=== PATIENT | male | born 1965 | race Caucasian/White ===

== ENCOUNTER 2020-04-22 13:44 | Inpatient (IN) | payer OTHER ==
[2020-04-22 15:03] VITALS: BMI 22.0
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
[2020-04-22] MEDS ORDERED: NICOTINE POLACRILEX 2 MG GUM BUC PRN (16:10)
[2020-04-22] MEDS ORDERED: IBUPROFEN 400 MG TABLET (FP) PO PRN (16:10)
[2020-04-22] MEDS ORDERED: MAGNESIUM CITRATE 300 ML BOTTLE PO PRN (16:10)
[2020-04-22] MEDS ORDERED: METHOCARBAMOL 500 MG TABLET PO PRN (16:10)
[2020-04-22] MEDS ORDERED: BISMUTH SUBSALICYLATE 524 MG/30 ML UD PO PRN (16:10)
[2020-04-22] MEDS ORDERED: chlordiazePOXIDE HCL 25 MG CAPSULE PO PRN (16:10)
[2020-04-22] MEDS ORDERED: ACETAMINOPHEN 325 MG TABLET (FP) PO PRN ×2 (16:10)
[2020-04-22] MEDS ORDERED: MAGNESIUM HYDROX 2400MG/30ML ORAL SUSPENSION 30 ML CUP PO PRN (16:10)
[2020-04-22] MEDS ORDERED: MAG HYDROX/AL HYDROX/SIMETH 30 ML UNIT-DOSE CUP PO PRN (16:10)
[2020-04-22] MEDS ORDERED: MENTHOL/PHENOL 1 EACH UD MM PRN (16:10)
[2020-04-22] MEDS ORDERED: ONDANSETRON *ODT* 4 MG TABLET SL PRN (16:10)
[2020-04-22] MEDS: NICOTINE 14 MG/24 HOURS TOPICAL PATCH TD SCH (17:39)
[2020-04-22] MEDS: chlordiazePOXIDE HCL 25 MG CAPSULE PO SCH ×2 (17:40→22:22)
[2020-04-22] MEDS: hydrOXYzine PAMOATE 25 MG CAPSULE (FP) PO SCH ×2 (17:45→22:22)
[2020-04-22] MEDS: THIAMINE HCL 100 MG TABLET (FP) PO SCH (22:22)
[2020-04-22] MEDS: MELATONIN 5 MG TABLETS PO SCH (22:22)
[2020-04-23] MEDS: hydrOXYzine PAMOATE 25 MG CAPSULE (FP) PO SCH ×5 (06:17→22:14)
[2020-04-23] MEDS: chlordiazePOXIDE HCL 25 MG CAPSULE PO SCH ×4 (06:17→22:14)
[2020-04-23] MEDS: PRENATAL VITAMINS W/ FOLIC ACID TABLET (FP) PO SCH (10:06)
[2020-04-23] MEDS: NICOTINE 14 MG/24 HOURS TOPICAL PATCH TD SCH (10:07)
[2020-04-23 10:36] LABS: HEMATOCRIT 41.7 % (35.4-49); HEMOGLOBIN 14.1 GM/dL (11.7-16.9); MCH 33.2 pg (25.7-33.7); MEAN CELL VOLUME 97.7 fl (80-96); MEAN PLT VOLUME 8.7 fl (7.5-11.1); PLATELET COUNT 116 K/MM3 (134-434); RBC 4.26 M/mm3 (4.00-5.60); RDW 13.2 % (11.9-15.9); WHITE BLOOD COUNT 5.6 K/mm3 (4.0-10.0)
[2020-04-23 10:52] LABS: ALBUMIN 3.9 g/dl (3.4-5.0); BILIRUBIN,TOTAL 1.3 mg/dL (0.2-1); BLOOD UREA NITROGEN 10.7 mg/dL (7-18); CALCIUM 9.3 mg/dL (8.5-10.1); CREATININE 0.8 mg/dL (0.55-1.3); POTASSIUM 3.6 mmol/L (3.5-5.1); TOT PROT 7.5 g/dl (6.4-8.2)
[2020-04-23] MEDS ORDERED: PNEUMOCOCCAL 23 VACCINE 0.5 ML VIAL IM ONE (12:00)
[2020-04-23] MEDS ORDERED: PNEUMOC 13-VAL CONJ-DIP CRM/PF 0.5 ML DISP.SYRIN IM ONE (12:00)
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
--- NOTE | 2020-04-23 12:44 | PN ---
S CIWA - CIWA Score Nausea/Vomitin-Mild Nausea/No Vomiting Muscle Tremors: 3 Anxiety: 2 Agitation: 1-Slight > Activity Paroxysmal Sweats: 1-Minimal Palms Moist Orientation: 0-Oriented Tacttile Disturbances: 0-None Auditory Disturbances: 0-None Visual Disturbances: 2-Mild Sensitivity Headache: 0-None Present CIWA-Ar Total Score: 10 BHS Progress Note (SOAP) Subjective: 54 years old male was admitted on 04/22/20 for alcohol withdrawal sx management treating with librium detox regiment feels tired ate 30% of breakfast and 40% lunch bmi 22 ensure 120 ml po tid with meals Objective: 04/23/20 12:52 Vital Signs - 24 hr 04/22/20 04/22/20 04/22/20 14:57 17:28 20:33 Temperature 97.7 F 97.3 F L 97.3 F L Pulse Rate 84 81 84 Respiratory 19 18 18 Rate Blood Pressure 141/88 161/86 139/91 O2 Sat by Pulse 100 Oximetry (%) 04/23/20 04/23/20 06:43 08:31 Temperature 97.1 F L 98.4 F Pulse Rate 104 H 82 Respiratory 16 18 Rate Blood Pressure 119/83 118/80 O2 Sat by Pulse 97 Oximetry (%) Laboratory Tests 04/23/20 04/23/20 04/23/20 08:00 08:00 08:00 WBC 5.6 RBC 4.26 Hgb 14.1 Hct 41.7 MCV 97.7 H MCH 33.2 MCHC 34.0 RDW 13.2 Plt Count 116 L MPV 8.7 Sodium 138 Potassium 3.6 Chloride 102 Carbon Dioxide 27 Anion Gap 9 BUN 10.7 Creatinine 0.8 Est GFR (CKD-EPI)AfAm 118.20 Est GFR (CKD-EPI)NonAf 101.99 Random Glucose 121 H Calcium 9.3 Total Bilirubin 1.3 H AST 73 H ALT 86 H Alkaline Phosphatase 72 Total Protein 7.5 Albumin 3.9 Syphilis Serology Non-reactive 04/23/20 12:56 glucose elevation fasting glucose pending Assessment: 04/23/20 12:56 alcohol withdrawal Plan: librium regiment
--- NOTE | 2020-04-23 16:58 | EKG ---
Test Reason : Blood Pressure : / mmHG Vent. Rate : 073 BPM Atrial Rate : 073 BPM P-R Int : 162 ms QRS Dur : 084 ms QT Int : 378 ms P-R-T Axes : 067 042 051 degrees QTc Int : 416 ms NORMAL SINUS RHYTHM POSSIBLE LEFT ATRIAL ENLARGEMENT BORDERLINE ECG NO PREVIOUS ECGS AVAILABLE Confirmed by MILO CAMARGO, GOYO ([id number]) on 04/23/2020 4:58:09 PM Referred By: Confirmed By:GOYO PEDRAZA MD
[2020-04-23] MEDS: THIAMINE HCL 100 MG TABLET (FP) PO SCH (22:14)
[2020-04-23] MEDS: MELATONIN 5 MG TABLETS PO SCH (22:14)
[2020-04-23] MEDS: traZODone HCL 100 MG TABLET (FP) PO SCH (22:14)
[2020-04-24] MEDS: hydrOXYzine PAMOATE 25 MG CAPSULE (FP) PO SCH ×5 (05:57→22:19)
[2020-04-24] MEDS: chlordiazePOXIDE HCL 25 MG CAPSULE PO SCH ×4 (05:57→22:19)
[2020-04-24] MEDS: PRENATAL VITAMINS W/ FOLIC ACID TABLET (FP) PO SCH (10:54)
[2020-04-24] MEDS: NICOTINE 14 MG/24 HOURS TOPICAL PATCH TD SCH (10:55)
--- NOTE | 2020-04-24 11:06 | PN ---
[facility] CIWA - CIWA Score Nausea/Vomitin-No Nausea/No Vomiting Muscle Tremors: 2 Anxiety: 3 Agitation: 0-Normal Activity Paroxysmal Sweats: 2 Orientation: 0-Oriented Tacttile Disturbances: 0-None Auditory Disturbances: 0-None Visual Disturbances: 0-None Headache: 1-Very Mild CIWA-Ar Total Score: 8 BHS Progress Note (SOAP) Subjective: c/o anxiety, headache, sweats, and shakes. Objective: 04/24/20 11:05 Vital Signs 04/24/20 04/24/20 06:58 08:36 Temperature 97.1 F L 97.1 F L Pulse Rate 91 H 92 H Respiratory 18 18 Rate Blood Pressure 98/61 95/63 O2 Sat by Pulse 97 Oximetry (%) Laboratory Last Values WBC 5.6 K/mm3 (4.0-10.0) 04/23/20 08:00 RBC 4.26 M/mm3 (4.00-5.60) 04/23/20 08:00 Hgb 14.1 GM/dL (11.7-16.9) 04/23/20 08:00 Hct 41.7 % (35.4-49) 04/23/20 08:00 MCV 97.7 fl (80-96) H 04/23/20 08:00 MCH 33.2 pg (25.7-33.7) 04/23/20 08:00 MCHC 34.0 g/dl (32.0-35.9) 04/23/20 08:00 RDW 13.2 % (11.9-15.9) 04/23/20 08:00 Plt Count 116 K/MM3 (134-434) L 04/23/20 08:00 MPV 8.7 fl (7.5-11.1) 04/23/20 08:00 Sodium 138 mmol/L (136-145) 04/23/20 08:00 Potassium 3.6 mmol/L (3.5-5.1) 04/23/20 08:00 Chloride 102 mmol/L (98-107) 04/23/20 08:00 Carbon Dioxide 27 mmol/L (21-32) 04/23/20 08:00 Anion Gap 9 MMOL/L (8-16) 04/23/20 08:00 BUN 10.7 mg/dL (7-18) 04/23/20 08:00 Creatinine 0.8 mg/dL (0.55-1.3) 04/23/20 08:00 Est GFR (CKD-EPI)AfAm 118.20 04/23/20 08:00 Est GFR (CKD-EPI)NonAf 101.99 04/23/20 08:00 Random Glucose 121 mg/dL (74-106) H 04/23/20 08:00 Calcium 9.3 mg/dL (8.5-10.1) 04/23/20 08:00 Total Bilirubin 1.3 mg/dL (0.2-1) H 04/23/20 08:00 AST 73 U/L (15-37) H 04/23/20 08:00 ALT 86 U/L (13-61) H 04/23/20 08:00 Alkaline Phosphatase 72 U/L (45-117) 04/23/20 08:00 Total Protein 7.5 g/dl (6.4-8.2) 04/23/20 08:00 Albumin 3.9 g/dl (3.4-5.0) 04/23/20 08:00 Syphilis Serology Non-reactive (NONREACTIVE) 04/23/20 08:00 Labs noted. Assessment: 04/24/20 11:05 AOX3, in no acute respiratory distress. Full ROM, ambulating in the unit. Withdrawal symptoms. Plan: continue detox.
[2020-04-24] MEDS: THIAMINE HCL 100 MG TABLET (FP) PO SCH (22:19)
[2020-04-24] MEDS: MELATONIN 5 MG TABLETS PO SCH (22:19)
[2020-04-24] MEDS: traZODone HCL 100 MG TABLET (FP) PO SCH (22:19)
[2020-04-25] MEDS ORDERED: chlordiazePOXIDE HCL 10 MG CAPSULE PO PRN
[2020-04-25] MEDS: hydrOXYzine PAMOATE 25 MG CAPSULE (FP) PO SCH ×5 (05:44→22:28)
[2020-04-25] MEDS: chlordiazePOXIDE HCL 10 MG CAPSULE PO SCH ×4 (05:44→22:28)
[2020-04-25] MEDS: PRENATAL VITAMINS W/ FOLIC ACID TABLET (FP) PO SCH (10:10)
[2020-04-25] MEDS: NICOTINE 14 MG/24 HOURS TOPICAL PATCH TD SCH (10:12)
--- NOTE | 2020-04-25 12:41 | PN ---
S CIWA - CIWA Score Nausea/Vomitin-No Nausea/No Vomiting Muscle Tremors: None Anxiety: 2 Agitation: 0-Normal Activity Paroxysmal Sweats: 2 Orientation: 0-Oriented Tacttile Disturbances: 0-None Auditory Disturbances: 0-None Visual Disturbances: 0-None Headache: 2-Mild CIWA-Ar Total Score: 6 BHS Progress Note (SOAP) Subjective: c/o headache, anxiety, and headache. Objective: 04/25/20 12:40 Vital Signs 04/25/20 04/25/20 06:45 08:34 Temperature 98.1 F 97.3 F L Pulse Rate 61 88 Respiratory 18 18 Rate Blood Pressure 98/58 L 98/62 O2 Sat by Pulse 99 Oximetry (%) Laboratory Last Values WBC 5.6 K/mm3 (4.0-10.0) 04/23/20 08:00 RBC 4.26 M/mm3 (4.00-5.60) 04/23/20 08:00 Hgb 14.1 GM/dL (11.7-16.9) 04/23/20 08:00 Hct 41.7 % (35.4-49) 04/23/20 08:00 MCV 97.7 fl (80-96) H 04/23/20 08:00 MCH 33.2 pg (25.7-33.7) 04/23/20 08:00 MCHC 34.0 g/dl (32.0-35.9) 04/23/20 08:00 RDW 13.2 % (11.9-15.9) 04/23/20 08:00 Plt Count 116 K/MM3 (134-434) L 04/23/20 08:00 MPV 8.7 fl (7.5-11.1) 04/23/20 08:00 Sodium 138 mmol/L (136-145) 04/23/20 08:00 Potassium 3.6 mmol/L (3.5-5.1) 04/23/20 08:00 Chloride 102 mmol/L (98-107) 04/23/20 08:00 Carbon Dioxide 27 mmol/L (21-32) 04/23/20 08:00 Anion Gap 9 MMOL/L (8-16) 04/23/20 08:00 BUN 10.7 mg/dL (7-18) 04/23/20 08:00 Creatinine 0.8 mg/dL (0.55-1.3) 04/23/20 08:00 Est GFR (CKD-EPI)AfAm 118.20 04/23/20 08:00 Est GFR (CKD-EPI)NonAf 101.99 04/23/20 08:00 Random Glucose 121 mg/dL (74-106) H 04/23/20 08:00 Calcium 9.3 mg/dL (8.5-10.1) 04/23/20 08:00 Total Bilirubin 1.3 mg/dL (0.2-1) H 04/23/20 08:00 AST 73 U/L (15-37) H 04/23/20 08:00 ALT 86 U/L (13-61) H 04/23/20 08:00 Alkaline Phosphatase 72 U/L (45-117) 04/23/20 08:00 Total Protein 7.5 g/dl (6.4-8.2) 04/23/20 08:00 Albumin 3.9 g/dl (3.4-5.0) 04/23/20 08:00 Syphilis Serology Non-reactive (NONREACTIVE) 04/23/20 08:00 COVID-19 (ELIANE) Not detected (Not Detected) 04/23/20 08:40 Labs noted. Assessment: 04/25/20 12:40 AOX3, in no acute respiratory distress. Full ROM, ambulating in the unit. Withdrawal symptoms. Plan: continue detox.
[2020-04-25] MEDS: THIAMINE HCL 100 MG TABLET (FP) PO SCH (22:28)
[2020-04-25] MEDS: MELATONIN 5 MG TABLETS PO SCH (22:28)
[2020-04-25] MEDS: traZODone HCL 100 MG TABLET (FP) PO SCH (22:28)
[2020-04-26] MEDS: chlordiazePOXIDE HCL 10 MG CAPSULE PO SCH ×2 (06:04→17:22)
[2020-04-26] MEDS: hydrOXYzine PAMOATE 25 MG CAPSULE (FP) PO SCH ×5 (06:04→22:04)
[2020-04-26] MEDS: PRENATAL VITAMINS W/ FOLIC ACID TABLET (FP) PO SCH (10:34)
[2020-04-26] MEDS: NICOTINE 14 MG/24 HOURS TOPICAL PATCH TD SCH (10:35)
--- NOTE | 2020-04-26 13:56 | PN ---
S CIWA - CIWA Score Nausea/Vomitin-No Nausea/No Vomiting Muscle Tremors: 1-None Visible, but [place] Anxiety: 1-Mildly Anxious Agitation: 0-Normal Activity Paroxysmal Sweats: No Perspiration Orientation: 0-Oriented Tacttile Disturbances: 1-Very Mild Itch/Numbness Auditory Disturbances: 0-None Visual Disturbances: 0-None Headache: 0-None Present CIWA-Ar Total Score: 3 BHS Progress Note (SOAP) Subjective: 54 years old male was admitted on 04/22/20 for alcohol withdrawal sx management treating with librium detox regiment feels better today discussing aftercare with staff mr castro [facility] is ok for alcohol abuse treatment Objective: 04/26/20 13:52 Vital Signs - 24 hr 04/25/20 04/25/20 04/26/20 16:58 20:33 05:57 Temperature 98.6 F 97.5 F L 97.5 F L Pulse Rate 80 81 86 Respiratory 18 18 16 Rate Blood Pressure 110/78 124/84 100/66 O2 Sat by Pulse 100 98 Oximetry (%) 04/26/20 04/26/20 08:48 12:55 Temperature 96.9 F L 98.1 F Pulse Rate 68 68 Respiratory 18 18 Rate Blood Pressure 121/73 110/74 O2 Sat by Pulse 98 96 Oximetry (%) Laboratory Tests 04/23/20 04/23/20 04/23/20 08:00 08:00 08:00 WBC 5.6 RBC 4.26 Hgb 14.1 Hct 41.7 MCV 97.7 H MCH 33.2 MCHC 34.0 RDW 13.2 Plt Count 116 L MPV 8.7 Sodium 138 Potassium 3.6 Chloride 102 Carbon Dioxide 27 Anion Gap 9 BUN 10.7 Creatinine 0.8 Est GFR (CKD-EPI)AfAm 118.20 Est GFR (CKD-EPI)NonAf 101.99 Random Glucose 121 H Fasting Glucose Calcium 9.3 Total Bilirubin 1.3 H AST 73 H ALT 86 H Alkaline Phosphatase 72 Total Protein 7.5 Albumin 3.9 Syphilis Serology Non-reactive COVID-19 (ELIANE) 04/23/20 04/26/20 08:40 07:15 WBC RBC Hgb Hct MCV MCH MCHC RDW Plt Count MPV Sodium Potassium Chloride Carbon Dioxide Anion Gap BUN Creatinine Est GFR (CKD-EPI)AfAm Est GFR (CKD-EPI)NonAf Random Glucose Fasting Glucose 167 H Calcium Total Bilirubin AST ALT Alkaline Phosphatase Total Protein Albumin Syphilis Serology COVID-19 (ELIANE) Not detected glucose serum elevation encourage mr castro for hgba1c following up with aftercare 04/26/20 13:55 Assessment: 04/26/20 13:56 alcohol withdrawal Plan: librium regiment
[2020-04-26] MEDS: THIAMINE HCL 100 MG TABLET (FP) PO SCH (22:04)
[2020-04-26] MEDS: traZODone HCL 100 MG TABLET (FP) PO SCH (22:04)
[2020-04-26] MEDS: MELATONIN 5 MG TABLETS PO SCH (22:05)
[2020-04-27] MEDS ORDERED: chlordiazePOXIDE HCL 10 MG CAPSULE PO ONE (05:00)
[2020-04-27] MEDS: hydrOXYzine PAMOATE 25 MG CAPSULE (FP) PO SCH ×2 (06:22→09:32)
[2020-04-27 07:00] VITALS: TEMP 98.2
[2020-04-27 09:09] VITALS: BP 126/79; PULSE 83
[2020-04-27] MEDS: NICOTINE 14 MG/24 HOURS TOPICAL PATCH TD SCH (09:31)
[2020-04-27] MEDS: PRENATAL VITAMINS W/ FOLIC ACID TABLET (FP) PO SCH (09:31)
--- NOTE | 2020-04-27 11:55 | DS ---
[facility] Detox Discharge Summary Admission Date: 04/22/20 Discharge Date: 04/27/20 - History Present History: Alcohol Dependence Additional Comments: 54 years old male was admitted on 04/22/20 for alcohol withdrawal sx management treated with librium detox regiment seen by psychiatrist bryan cabral mr castro has completed librium regiment and is tolerated well General Appearance: Yes: no Distress, mild Tremorous, less Anxious HEENTM: Yes: Hearing grossly Normal, Normocephalic, KIKI Respiratory: Yes: Lungs Clear, Normal Breath Sounds, No Respiratory Distress, No Accessory Muscle Use Neck: Yes: Supple Cardiology: Yes: Regular Rhythm, Regular Rate, S1, S2 Abdominal: Yes: Normal Bowel Sounds, Non Tender, Flat, Soft Extremities: Yes: Within Normal Limits, Normal Range of Motion Neurological: Yes: Within Normal Limits, Alert, Motor Strength 5/5, Normal Response Integumentary: Yes: Dry, Warm Pertinent Past History: time for discharge 34 minutes - Physical Exam Results Vital Signs: Vital Signs Temperature 98.2 F 04/27/20 08:32 Pulse Rate 83 04/27/20 08:32 Respiratory Rate 18 04/27/20 08:32 Blood Pressure 126/79 04/27/20 08:32 O2 Sat by Pulse Oximetry (%) 96 04/27/20 05:47 Pertinent Admission Physical Exam Findings: alcohol withdrawal Vital Signs - 24 hr 04/26/20 04/26/20 04/26/20 12:55 16:28 20:18 Temperature 98.1 F 97.1 F L 97.5 F L Pulse Rate 68 91 H 86 Respiratory 18 18 19 Rate Blood Pressure 110/74 128/78 136/83 O2 Sat by Pulse 96 98 Oximetry (%) 04/27/20 04/27/20 05:47 08:32 Temperature 98.2 F 98.2 F Pulse Rate 73 83 Respiratory 16 18 Rate Blood Pressure 114/73 126/79 O2 Sat by Pulse 96 Oximetry (%) Laboratory Tests 04/23/20 04/23/20 04/23/20 08:00 08:00 08:00 WBC 5.6 RBC 4.26 Hgb 14.1 Hct 41.7 MCV 97.7 H MCH 33.2 MCHC 34.0 RDW 13.2 Plt Count 116 L MPV 8.7 Sodium 138 Potassium 3.6 Chloride 102 Carbon Dioxide 27 Anion Gap 9 BUN 10.7 Creatinine 0.8 Est GFR (CKD-EPI)AfAm 118.20 Est GFR (CKD-EPI)NonAf 101.99 Random Glucose 121 H Fasting Glucose Calcium 9.3 Total Bilirubin 1.3 H AST 73 H ALT 86 H Alkaline Phosphatase 72 Total Protein 7.5 Albumin 3.9 Syphilis Serology Non-reactive COVID-19 (ELIANE) 04/23/20 04/26/20 08:40 07:15 WBC RBC Hgb Hct MCV MCH MCHC RDW Plt Count MPV Sodium Potassium Chloride Carbon Dioxide Anion Gap BUN Creatinine Est GFR (CKD-EPI)AfAm Est GFR (CKD-EPI)NonAf Random Glucose Fasting Glucose 167 H Calcium Total Bilirubin AST ALT Alkaline Phosphatase Total Protein Albumin Syphilis Serology COVID-19 (ELIANE) Not detected encourage mr castro to follow up glucose [facility] Hospital Course: Detox Protocol Followed, Detoxed Safely, Responded well, Discharged Condition Good, Rehab Referral Accepted Patient has Accepted a Rehab Referral to: [facility] - Medication Discharge Medications: Ambulatory Orders Folic Acid - 1 mg PO DAILY 04/22/20 Gabapentin [Neurontin -] 100 mg PO BID 04/22/20 Hydroxyzine HCl 25 mg PO TID 04/22/20 Naltrexone 50 mg PO DAILY 04/22/20 traZODone HCL [Desyrel -] 100 mg PO HS 04/22/20 - Diagnosis (1) Substance induced mood disorder Status: Suspected (2) Alcohol dependence with withdrawal, uncomplicated Status: Acute (3) Nicotine dependence Status: Acute Qualifiers: Nicotine product type: cigarettes Substance use status: in withdrawal Qualified Code(s): F17.213 - Nicotine dependence, cigarettes, with withdrawal - AMA Did Patient Leave Against Medical Advice: No CIWA Score - CIWA Score Nausea/Vomitin-No Nausea/No Vomiting Muscle Tremors: 1-None Visible, but [place] Anxiety: 0-No Anxiety, at Ease Agitation: 0-Normal Activity Paroxysmal Sweats: No Perspiration Orientation: 0-Oriented Tacttile Disturbances: 0-None Auditory Disturbances: 0-None Visual Disturbances: 0-None Headache: 0-None Present CIWA-Ar Total Score: 1
== END 2020-04-27 09:06 | disposition home or self-care (01) | DRG 774 ==
LOC: YASAS 13:44 → Y3N 15:33
PROVIDERS: ADMIT Allergy & Immunology; ATTEND Allergy & Immunology
PROC: HZ2ZZZZ Detoxification Services for Substance Abuse Treatment (ICD-10-PCS; principal; 2020-04-22)
DX: F10.230 Alcohol dependence with withdrawal, uncomplicated (principal); F14.20 Cocaine dependence, uncomplicated; F17.213 Nicotine dependence, cigarettes, with withdrawal; F19.282 Other psychoactive substance dependence with psychoactive substance-induced sleep disorder; F19.24 Other psychoactive substance dependence with psychoactive substance-induced mood disorder; F41.9 Anxiety disorder, unspecified; F32.9 Major depressive disorder, single episode, unspecified; M54.89 Other dorsalgia; G89.29 Other chronic pain; Z87.442 Personal history of urinary calculi; Z86.79 Personal history of other diseases of the circulatory system; Z98.890 Other specified postprocedural states
CPT/HCPCS: 36415; 80053; 82947; 85027; 86780; 93005; 93010; U0003